=== PATIENT | male | born 1945 | race Caucasian/White ===

== ENCOUNTER → 2021-03-04 | Outpatient (CLI) | payer MEDICARE, MEDICAID | END | disposition home or self-care (01) | LOC: CARD DIAG 12:26 | PROVIDERS: ATTEND Internal Medicine Hematology & Oncology | DX: I08.0 Rheumatic disorders of both mitral and aortic valves (principal) | CPT/HCPCS: 93306 ==

== ENCOUNTER 2021-03-14 07:44 | Day surgery (SDC) | payer MEDICARE, MEDICAID ==
[~2021-03-14] VITALS: Ht 165.1 cm; Wt 78.2 kg
[2021-03-14] MEDS ORDERED: albumin 25% 100mL bottle x 1 IV PRN (08:15)
[2021-03-14] MEDS ORDERED: ASPI-611 PO (08:40)
[2021-03-14] MEDS ORDERED: ALLO300T8 PO (08:40)
[2021-03-14] MEDS ORDERED: HYDR500C18 PO (08:40)
[2021-03-14] MEDS ORDERED: LISI2.5T2 PO (08:40)
[2021-03-14 08:43] VITALS: BP 136/86
[2021-03-14 09:02] LABS: LACTATE DEHYDROGENASE 213 U/L (85-227); TOTAL PROTEIN 7.8 G/DL (6.4-8.2)
[2021-03-14 09:08] LABS: EOSINOPHILS # (AUTO) 0.1 X10'3 (0-0.9); HEMOGLOBIN 16.4 g/dl (14.0-17.9)
[2021-03-14 09:11] LABS: BASOPHILS % (AUTO) 0.6 % (0-1); EOSINOPHILS % (AUTO) 1.2 % (0-6); HEMATOCRIT 47.6 % (42.0-52.0); LYMPHOCYTES # (AUTO) 1.6 X10'3 (1.1-4.8); MEAN CORPUSCULAR HEMOGLOBIN 34.6 PG (27.0-31.0); MEAN CORPUSCULAR HGB CONC 34.5 g/dL (33.0-36.5); MEAN CORPUSCULAR VOLUME 100.4 FL (78-98); MEAN PLATELET VOLUME 7.8 FL (7.4-10.4); MONOCYTES # (AUTO) 0.5 X10'3 (0-0.9); MONOCYTES % (AUTO) 8.5 % (2-12); NEUTROPHILS # (AUTO) 3.9 X10'3 (1.8-7.7); NEUTROPHILS % (AUTO) 63.7 % (42-75); PLATELET COUNT 350 X10'3 (140-440); RED BLOOD COUNT 4.74 X10'6 (4.70-6.10); RED CELL DISTRIBUTION WIDTH 12.4 % (11.5-14.5); WHITE BLOOD COUNT 6.1 X10'3 (4.5-11.0)
[2021-03-14 09:39] LABS: ALANINE AMINOTRANSFERASE 14 U/L (12-78); ALKALINE PHOSPHATASE 55 IU/L (46-116); ANION GAP 11 (8-16); ASPARTATE AMINO TRANSFERASE 14 U/L (10-37); BILIRUBIN,TOTAL 0.8 MG/DL (0.1-1.0); BLOOD UREA NITROGEN 16 MG/DL (7-18); BUN/CREATININE RATIO 13.8 (5.4-32.0); CALCIUM 8.7 MG/DL (8.5-10.1); CHLORIDE 100 MMOL/L (99-107); CREATININE 1.16 MG/DL (0.60-1.10); GLUCOSE 128 MG/DL (70-104); POTASSIUM 4.1 MMOL/L (3.5-5.1); SODIUM 139 MMOL/L (135-145); TOTAL CARBON DIOXIDE 28.1 MMOL/L (24-32); eGFR 62 ML/MIN
[2021-03-14 11:02] LABS: ALBUMIN 3.9 G/DL (3.4-5.0)
== END 2021-03-14 09:40 | disposition home or self-care (01) ==
LOC: SSTAY O 07:44
PROVIDERS: ATTEND Radiology Vascular & Interventional Radiology
DX: R18.8 Other ascites (principal); Z53.8 Procedure and treatment not carried out for other reasons; R14.0 Abdominal distension (gaseous); F41.9 Anxiety disorder, unspecified; F32.9 Major depressive disorder, single episode, unspecified; D47.3 Essential (hemorrhagic) thrombocythemia; D45 Polycythemia vera; Z86.73 Personal history of transient ischemic attack (TIA), and cerebral infarction without residual deficits; Z79.899 Other long term (current) drug therapy; Z79.82 Long term (current) use of aspirin
CPT/HCPCS: 36415; 76705; 80053; 83615; 85025

== ENCOUNTER 2021-08-22 06:33 | Day surgery (SDC) | payer MEDICARE, MEDICAID ==
[~2021-08-22] VITALS: Ht 152.4 cm; Wt 73.0 kg
[2021-08-22] VITALS (11 sets, daily range): BP systolic 111–129; BP diastolic 66–79
[~2021-08-22 06:33] MED LIST: ALLO300T8 PO; ASPI-611 PO; HYDR500C18 PO; LISI2.5T14 PO
[2021-08-22] MEDS ORDERED: LIDOcaine/PRILOcaine 5gm cream TP ONE (07:05)
[2021-08-22] MEDS ORDERED: LORazepam 0.5 MG tablet PO PRN (07:05)
[2021-08-22] MEDS ORDERED: diphenhydrAMINE 25mg capsule PO PRN (07:05)
[2021-08-22] MEDS ORDERED: normal saline 1,000 ML IV SCH (07:05)
[2021-08-22] MEDS ORDERED: verapamil 2.5 mg/ml inj IV ONE (07:13)
[2021-08-22] MEDS ORDERED: nitroGLYCERIN-Tridil 50MG/D5W 250 ML IV ONE (07:13)
[2021-08-22] MEDS ORDERED: fentaNYL/PF 50MCG/1 ML 2ML syringe ONE (07:14)
[2021-08-22] MEDS ORDERED: iohexol 350 MG/ML 50ML vial IV ONE ×2 (07:14→08:45)
[2021-08-22] MEDS ORDERED: heparin 1,000unit/ml 10ml vial 10 ML ONE (07:14)
[2021-08-22] MEDS ORDERED: iohexol 350MG/ML 100ml bottle IV ONE (07:14)
[2021-08-22] MEDS ORDERED: midazolam 1 mg/ML 2ml injection ONE (07:14)
[2021-08-22] MEDS ORDERED: MULT-1085 PO (07:28)
[2021-08-22] MEDS ORDERED: LIDOcaine 1% (10mg/ml)w/preservative injection 20ml MDV ONE (07:55)
[2021-08-22] MEDS ORDERED: sodium bicarbonate (8.4%) inj. 150 ML in dextrose 5%-water 1,000 ML IV ONE (08:15)
[2021-08-22] MEDS ORDERED: sodium bicarbonate (8.4%) inj. 150 MEQ in dextrose 5%-water 1,000 ML IV SCH (10:30)
== END 2021-08-22 15:05 | disposition home or self-care (01) ==
LOC: SSTAY O 06:33
PROVIDERS: ATTEND Internal Medicine Cardiovascular Disease
DX: R94.39 Abnormal result of other cardiovascular function study (principal); R06.02 Shortness of breath; R53.83 Other fatigue; I25.10 Atherosclerotic heart disease of native coronary artery without angina pectoris; F41.9 Anxiety disorder, unspecified; F32.9 Major depressive disorder, single episode, unspecified; D69.6 Thrombocytopenia, unspecified; D75.1 Secondary polycythemia; E78.5 Hyperlipidemia, unspecified; I10 Essential (primary) hypertension; Z90.49 Acquired absence of other specified parts of digestive tract; E66.9 Obesity, unspecified; Z68.35 Body mass index [BMI] 35.0-35.9, adult; Z79.899 Other long term (current) drug therapy; Z79.82 Long term (current) use of aspirin; Z86.73 Personal history of transient ischemic attack (TIA), and cerebral infarction without residual deficits; Z80.8 Family history of malignant neoplasm of other organs or systems
CPT/HCPCS: 76937; 93005; 93460; 93571; 99152; 99153; C1751; C1769; C1894; J1644; J2250; J3010; J3490; J7030; Q0163; Q9967; A4620; A5120; A6258